=== PATIENT | male | born 1990 | race Two or more races ===

== ENCOUNTER 2020-07-17 10:47 | Emergency (ER) | payer OTHER ==
[~2020-07-17] VITALS: Ht 175.3 cm; Wt 70.3 kg
[~2020-07-17 10:47] MED LIST: CIPRO500 MG PO; DOLOGESIC 500-1 EACH PO; FLAGYL500MG PO; INTESTINEX1 CA1 PO
[2020-07-17] MEDS ORDERED: ZITHROMAX500 MG PO (14:24)
== END 2020-07-17 14:30 | disposition home or self-care (01) ==
LOC: ER 10:47
DX: B34.9 Viral infection, unspecified (principal); Z20.822 Contact with and (suspected) exposure to COVID-19